=== PATIENT | male | born 1995 | race Hispanic/Latino ===

== ENCOUNTER 2018-11-12 00:01 | Emergency (ER) | payer OTHER ==
[2018-11-12 00:27] VITALS: BP 107/66; PULSE 67; RESP 18; TEMP 97.8; O2SAT 99
[2018-11-12] MEDS ORDERED: Tdap Vaccine 0.5 ml Vial (10-64 yrs) IM ONE ×2 (01:29→01:36)
--- NOTE | 2018-11-12 01:33 | ED PDOC ---
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 Pt was walking in the dorm at his school when he ran into a wall and hit his forehead against a wall as he did not see it. He denies LOC, N/V, dizziness or ARIAS. He has not taken any medication for the pain and is unsure of whether is tetanus is up to date. Past Medical History Reviewed: Historical Data, Nursing Documentation, Vital Signs Vital Signs: Last Vital Signs Temp 97.8 F 11/12/18 00:25 Pulse 67 11/12/18 00:25 Resp 18 11/12/18 00:25 BP 107/66 11/12/18 00:25 Pulse Ox 99 11/12/18 00:25 - Medical History Other PMH: legally blind - Family History Family History: States: Unknown Family Hx - Allergies Allergies/Adverse Reactions: Allergies Allergy/AdvReac Type Severity Reaction Status Date / Time No Known Allergies Allergy Verified 11/12/18 00:25 Review of Systems Neurological: Negative for: Weakness, Incoordination, Confusion, Headache, Dizziness Physical Exam - Reviewed Nursing Documentation Reviewed: Yes Vital Signs Reviewed: Yes - Physical Exam Appears: Positive for: Non-toxic Head Exam: Negative for: ATRAUMATIC (approximately 1.5 - 2cm superficial laceration on left forehead (not amenable to suturing) w/ underlying edema, no bleeding, erythema. ) ENT: Positive for: Normal ENT Inspection Neck: Positive for: Normal Neurologic/Psych: Positive for: Alert, Oriented, Gait (stable) - ECG O2 Sat by Pulse Oximetry: 99 Medical Decision Making Medical Decision Making: Tetanus vaccine Wound cleaned w/ some sterile water, 3 steri-strip placed and Bacitracin used. Patient instructed to keep area clean and dry for the next 24hrs and then remove bandage. Allow steri-strips to fall off on their own. Disposition - Clinical Impression Clinical Impression: Forehead trauma - Patient ED Disposition Is Patient to be Admitted: No - Disposition Disposition: Routine/Home Disposition Time: :45 Condition: STABLE Additional Instructions: Keep area clean and dry for the next 24hrs and then remove bandage and wash gently with soap and water. Leave open to the air thereafter. Use Bacitracin and allow steri-strips to fall off on their own. F/u with your primary care doctor or return to ER if you develop redness or pus. Return to ER if you have nausea, vomiting, dizziness, trouble walking or fevers. Use Tylenol or Ibuprofen for pain. Instructions: Wound Care (DC), Head Injury Observation (DC) Forms: [facility] (Slovenian) Print Language: SETSWANA
== END 2018-11-12 01:50 | disposition home or self-care (01) ==
LOC: H.ER 00:01
DX: S01.81XA Laceration without foreign body of other part of head, initial encounter (principal); W22.01XA Walked into wall, initial encounter; Y93.01 Activity, walking, marching and hiking; Y92.169 Unspecified place in school dormitory as the place of occurrence of the external cause